=== PATIENT | female | born 1970 | race Two or more races ===

== ENCOUNTER 2018-09-30 18:22 | Emergency (ER) | payer OTHER, BC ==
[~2018-09-30] VITALS: Ht 154.9 cm; Wt 66.0 kg
[2018-09-30 18:38] VITALS: BP 121/86
[2018-09-30] MEDS ORDERED: IBUPROFEN 200 MG TABLET ONE (18:56)
[2018-09-30] MEDS ORDERED: IBUPROFEN 200 MG TABLET PO ONE (19:00)
== END 2018-09-30 19:35 | disposition home or self-care (01) ==
LOC: ED 19:20
DX: M79.661 Pain in right lower leg (principal); M72.2 Plantar fascial fibromatosis
CPT/HCPCS: 99284

== ENCOUNTER 2019-04-03 21:29 | Emergency (ER) | payer OTHER, BC ==
[~2019-04-03] VITALS: Ht 154.9 cm; Wt 60.0 kg
[2019-04-03] MEDS ORDERED: SODIUM CHLORIDE FLUSH 10ML SYR IVF ONE (22:00)
[2019-04-03] MEDS ORDERED: CYCLOBENZAPRINE 10 MG TABLET ONE ×2 (22:54→23:07)
[2019-04-03] MEDS ORDERED: HYDROmorphone 2 MG/ML, 1ML ONE (22:55)
[2019-04-03] MEDS ORDERED: IBUPROFEN 600 MG TABLET ONE (22:55)
[2019-04-03] MEDS ORDERED: CYCLOBENZAPRINE 10 MG TABLET PO ONE (23:00)
[2019-04-03] MEDS ORDERED: HYDROmorphone 2 MG/ML, 1ML IM ONE (23:00)
[2019-04-03] MEDS ORDERED: IBUPROFEN 600 MG TABLET PO ONE (23:00)
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
--- NOTE | 2019-04-04 00:19 | NUR ---
PT C/O DIZZINESS AND NAUSEA AFTER MED GIVEN. ERP AWARE, PT TO BE MEDICATED FOR NAUSEA. PT IS HERE WAITING TO TAKE PT HOME.
[2019-04-04] MEDS ORDERED: ONDANSETRON ODT 4 MG ONE (00:21)
[2019-04-04 00:26] VITALS: BP 117/90
--- NOTE | 2019-04-04 00:26 | NUR ---
PT MEDICATED FOR NAUSEA. ORTHO VITALS DONE. PT AMBULATING STEADILY. PT LEFT WITH .
[2019-04-04] MEDS ORDERED: ONDANSETRON ODT 4 MG PO ONE (00:30)
== END 2019-04-04 00:28 | disposition home or self-care (01) ==
LOC: ED 23:52
DX: G44.219 Episodic tension-type headache, not intractable (principal)
CPT/HCPCS: 99284; J1170; Q0162

== ENCOUNTER 2020-07-23 19:37 | Emergency (ER) | payer BC, OTHER ==
[~2020-07-23] VITALS: Ht 154.9 cm; Wt 82.0 kg
[2020-07-23 19:54] VITALS: BP 142/81
[2020-07-23] MEDS ORDERED: HYDROcodone/APAP 5/325 TABLET ONE (20:07)
[2020-07-23] MEDS ORDERED: HYDROcodone/APAP 5/325 TABLET PO PRN (20:30)
== END 2020-07-23 21:15 | disposition home or self-care (01) ==
LOC: ED 20:14
DX: S16.1XXA Strain of muscle, fascia and tendon at neck level, initial encounter (principal); M54.6 Pain in thoracic spine; V49.59XA Passenger injured in collision with other motor vehicles in traffic accident, initial encounter; Y93.89 Activity, other specified; Y92.488 Other paved roadways as the place of occurrence of the external cause; Y99.8 Other external cause status
CPT/HCPCS: 71045; 72072; 72125; 99284

== ENCOUNTER 2020-07-30 19:28 | Emergency (ER) | payer SELFPAY ==
[~2020-07-30] VITALS: Ht 154.9 cm; Wt 71.8 kg
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
[2020-07-30] MEDS ORDERED: KETOROLAC 60 MG/2 ML ONE (21:18)
[2020-07-30] MEDS ORDERED: OXYcodone/APAP 10/325MG TABLET ONE (21:19)
--- NOTE | 2020-07-30 21:20 | NUR ---
PT TO IMAGING AT THIS TIME.
[2020-07-30] MEDS ORDERED: KETOROLAC 30 MG/1 ML IM ONE (21:30)
[2020-07-30] MEDS ORDERED: OXYcodone/APAP 10/325MG TABLET PO ONE (21:30)
[2020-07-30 22:14] VITALS: BP 123/83
== END 2020-07-30 22:38 | disposition home or self-care (01) ==
LOC: ED 21:48
DX: G89.11 Acute pain due to trauma (principal); M54.12 Radiculopathy, cervical region; M25.511 Pain in right shoulder; Z87.891 Personal history of nicotine dependence; V49.9XXA Car occupant (driver) (passenger) injured in unspecified traffic accident, initial encounter; Y93.89 Activity, other specified; Y92.89 Other specified places as the place of occurrence of the external cause; Y99.8 Other external cause status
CPT/HCPCS: 73030; 93971; 96372; 99284; J1885; J7512